=== PATIENT | female | born 1985 | race Caucasian/White ===

== ENCOUNTER 2023-04-28 03:23 | Emergency (ER) | payer MEDICAID ==
[~2023-04-28] VITALS: Ht 160 cm; Wt 104.5 kg
[2023-04-28 03:25] VITALS: BP 141/98; PULSE 92; RESP 15; TEMP 97.8
== END 2023-04-28 04:25 | disposition home or self-care (01) ==
LOC: EMS 03:25
DX: R46.89 Other symptoms and signs involving appearance and behavior (principal); F17.210 Nicotine dependence, cigarettes, uncomplicated; F12.90 Cannabis use, unspecified, uncomplicated; Z98.890 Other specified postprocedural states; Z91.018 Allergy to other foods
CPT/HCPCS: 99281; Z7502